=== PATIENT | female | born 1975 | race Caucasian/White ===

== ENCOUNTER 2018-04-02 12:48 | Day surgery (SDC) | payer OTHER ==
[~2018-04-02] VITALS: Ht 160 cm; Wt 78.9 kg
[~2018-04-02 12:48] MED LIST: AMITRIPTYLINE H75 M1 PO; NORCO 325 MG-7.1 TAB PO
[2018-04-02] MEDS ORDERED: MOTRIN 800800 MG/TAB PO (13:45)
[2018-04-02 14:01] VITALS: BP 154/104; PULSE 106; TEMP 99
[2018-04-02 16:25] VITALS: BP 161/100; PULSE 83
[2018-04-02 16:37] VITALS: TEMP 98.9
[2018-04-02 16:40] VITALS: BP 160/98; PULSE 81
[2018-04-02 16:55] VITALS: BP 164/108; PULSE 86
== END 2018-04-02 17:05 | disposition home or self-care (01) ==
LOC: SDCO 12:48
DX: N32.89 Other specified disorders of bladder (principal); C53.9 Malignant neoplasm of cervix uteri, unspecified; F41.9 Anxiety disorder, unspecified; F17.210 Nicotine dependence, cigarettes, uncomplicated; G43.909 Migraine, unspecified, not intractable, without status migrainosus; G89.29 Other chronic pain; I10 Essential (primary) hypertension; Z80.51 Family history of malignant neoplasm of kidney; Z79.899 Other long term (current) drug therapy
CPT/HCPCS: C1769; C2617; J0690; J1100; J1885; J2250; J2405; J2704; J3010; J7120; Q9967

== ENCOUNTER 2018-12-10 13:00 | Outpatient (RCR) | payer OTHER ==
[2018-12-09 13:00] VITALS: BP 124/82; PULSE 96; TEMP 98.7
--- NOTE | 2018-12-09 13:25 | NUR ---
Pt observed for 20 min post injection. Pt denies s/s of complications. Pt discharged per ambulation.
[~2018-12-10] VITALS: Ht 160 cm; Wt 85.4 kg
[2018-12-10 12:19] VITALS: BP 118/85; PULSE 91; TEMP 98.2
[~2018-12-10 13:00] MED LIST changes: +CALCITRIOL PO; +CALCIUM 600600 M2 PO; +MOTRIN 800800 MG/TAB PO; +PRINIVIL10 MG PO; +SYNTHROID0.1 MG/TAB PO
== END 2019-03-09 | disposition home or self-care (01) ==
LOC: EUO
DX: C73 Malignant neoplasm of thyroid gland (principal)
CPT/HCPCS: J3240

== ENCOUNTER → 2018-12-11 | Outpatient (CLI) | payer OTHER | LOC: COL.RAD 08:00 | DX: C73 Malignant neoplasm of thyroid gland (principal) | CPT/HCPCS: A9517 ==

== ENCOUNTER → 2018-12-18 | Outpatient (CLI) | payer OTHER ==
[2018-12-20 14:14] LABS: THYROGLOBULIN AB SCREEN <1.8 IU/mL (<4.0); THYROGLOBULIN TUMOR MARKER 17 ng/mL (())
== END ==
LOC: COL.RAD 13:14
PROVIDERS: Otolaryngology
DX: C73 Malignant neoplasm of thyroid gland (principal)

== ENCOUNTER 2019-04-28 13:00 | Outpatient (RCR) | payer OTHER ==
[2019-04-27 12:48] VITALS: BP 127/84; PULSE 98; TEMP 98
[~2019-04-28] VITALS: Ht 160 cm; Wt 87.2 kg
[2019-04-28 12:50] VITALS: BP 119/86; PULSE 109; TEMP 98.5
[2019-05-05 13:27] LABS: THYROGLOBULIN AB SCREEN <1.8 IU/mL (<4.0); THYROGLOBULIN TUMOR MARKER 0.2 ng/mL (())
== END 2019-07-26 | disposition home or self-care (01) ==
LOC: EUO
PROVIDERS: Otolaryngology; Radiology Diagnostic Radiology
DX: C73 Malignant neoplasm of thyroid gland (principal)
CPT/HCPCS: A9528; J3240

== ENCOUNTER 2020-03-10 13:00 | Outpatient (RCR) | payer OTHER ==
[2020-03-07 13:57] VITALS: BP 96/67; PULSE 101; TEMP 97.8
[2020-03-08 12:21] VITALS: BP 113/78; PULSE 97; TEMP 98.4
[~2020-03-10] VITALS: Ht 160 cm; Wt 81.5 kg
[~2020-03-10 13:00] MED LIST changes: +PREMPRO 0.625/21 TAB PO
[2020-03-14 12:20] LABS: THYROGLOBULIN AB SCREEN <1.8 IU/mL (<1.8); THYROGLOBULIN TUMOR MARKER 0.2 ng/mL (())
== END 2020-05-16 | disposition home or self-care (01) ==
LOC: COL.RAD
PROVIDERS: Otolaryngology
DX: C73 Malignant neoplasm of thyroid gland (principal)
CPT/HCPCS: A9516; J3240

== ENCOUNTER 2020-11-07 09:35 | Outpatient (RCR) | payer OTHER | END 2021-02-05 | disposition home or self-care (01) | LOC: WSST | DX: R13.10 Dysphagia, unspecified (principal) ==

== ENCOUNTER → 2020-11-17 | Outpatient (CLI) | payer OTHER | LOC: COL.RAD 14:37 | DX: R13.10 Dysphagia, unspecified (principal) ==